=== PATIENT | female | born 1945 | race Asian ===

== ENCOUNTER 2016-10-05 14:54 | Inpatient (IN) | payer MEDICARE, BC ==
[~2016-10-05] VITALS: Ht 157.5 cm; Wt 80.9 kg
[2016-10-05 20:54] VITALS: Ht 157.5 cm; Wt 80.9 kg
[2016-10-05 21:00] VITALS: BP 101/56; RESP 18
[2016-10-05] MEDS: ATORVASTATIN 80 MG TAB PO SCH (22:16)
[2016-10-05] MEDS ORDERED: DOCUSATE SODIUM 100 MG CAP PO PRN (22:30)
[2016-10-06 00:01] LABS: ADD UMIC YES; UR ASCORBIC ACID NEGATIVE (NEGATIVE); UR BACTERIA FEW /HPF (NONE SEEN); UR BILIRUBIN (Dip) NEGATIVE (NEGATIVE); UR BLOOD (Dip) 2+ mg/dL (NEGATIVE); UR CLARITY CLEAR (CLEAR); UR COLOR STRAW (YELLOW); UR GLUCOSE (Dip) 1+ mg/dL (NEGATIVE); UR KETONES (Dip) NEGATIVE (NEGATIVE); UR LEUKOCYTE ESTERASE (Dip) 1+ Leu/ul (NEGATIVE); UR NITRITE (Dip) NEGATIVE (NEGATIVE); UR RBC 13 /HPF (0-5); UR SPECIFIC GRAVITY (Dip) 1.009 (1.003-1.030); UR TOTAL PROTEIN (Dip) NEGATIVE (NEGATIVE); UR UROBILINOGEN (Dip) NEGATIVE (NEGATIVE)
[2016-10-06 02:00] VITALS: BP 135/75; RESP 18
[2016-10-06 06:37] LABS: BASOPHIL # 0.1 10^3/ul (0.0-0.1); BASOPHILS % 0.7 % (0.0-2.0); EOSINOPHILS # 0.2 10^3/ul (0.0-0.5); EOSINOPHILS % 3.1 % (0.0-7.0); HEMATOCRIT 38.1 % (37.0-47.0); HEMOGLOBIN 12.2 g/dl (12.0-16.0); LYMPHOCYTES # 1.5 10^3/ul (0.8-2.9); LYMPHOCYTES % 21.7 % (15.0-51.0); MEAN CORPUSCULAR HEMOGLOBIN 28.6 pg (29.0-33.0); MEAN CORPUSCULAR VOLUME 89.2 fl (82.0-101.0); MEAN PLATELET VOLUME 9.7 fl (7.4-10.4); MONOCYTE # 0.5 10^3/ul (0.3-0.9); MONOCYTES % 6.4 % (0.0-11.0); NEUTROPHILS % 67.7 % (39.0-77.0); PLATELET COUNT 257 10^3/UL (140-415); RED BLOOD COUNT 4.27 10^6/ul (4.20-5.40); RED CELL DISTRIBUTION WIDTH 13.2 % (11.5-14.5)
[2016-10-06 06:58] LABS: ALBUMIN 3.9 g/dl (3.3-4.9); BILIRUBIN,INDIRECT 0.5 mg/dl (0-1.1); BILIRUBIN,TOTAL 0.5 mg/dl (0.2-1.3); CALCIUM 9.3 mg/dl (8.4-10.2); CREATININE 0.99 mg/dl (0.44-1.00); POTASSIUM 4.3 mmol/L (3.5-5.1); TOTAL PROTEIN 7.8 g/dl (6.1-8.1)
[2016-10-06 07:30] VITALS: BP 141/73; RESP 20
[2016-10-06] MEDS: ASPIRIN (EC) 81 MG TAB PO SCH (08:31)
[2016-10-06] MEDS: AMLODIPINE 5 MG TAB PO SCH (08:32)
[2016-10-06] MEDS: metFORMIN 850 MG TAB PO SCH ×2 (08:32→17:17)
--- NOTE | 2016-10-06 10:34 | HP ---
DATE OF ADMISSION: 10/05/2016 CHIEF COMPLAINT: Acute CVA. HISTORY OF PRESENT ILLNESS: This is a 70-year-old female with a past medical history of diabetes, hypertension, dyslipidemia, who presented to [facility] with 1 week of left lower motor weakness and abnormal facial sensation dysarthria. 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 The patient was subsequently admitted and was treated for acute CVA. She was started on aspirin and statin therapy. The patient was also noted to have and episode of acute kidney injury, which seem to improved with IV fluids. The patient received physical therapy during the hospital course and was subsequently transferred to [facility] for continued care. Upon my evaluation, patient a this time is stable. No fevers, chills, nausea, vomiting. No shortness of breath. PAST MEDICAL HISTORY: As stated above. History of hypertension, dyslipidemia, diabetes. PAST SURGICAL HISTORY: None. ALLERGIES: NO KNOWN DRUG ALLERGIES. SOCIAL HISTORY: Does not drink, smoke, or do drugs. MEDICATIONS: The patient's medications have been reviewed. REVIEW OF SYSTEMS: A 14-point review of systems was conducted and except what is noted in history of present illness, is negative. PHYSICAL EXAMINATION: VITAL SIGNS: Blood pressure 141/73, respirations 20, pulse 74, temperature 98.6. HEENT: Head is normocephalic. NECK: Supple. HEART: Regular rate. LUNGS: Diminished breath sounds at the base. ABDOMEN: Soft, nontender to palpation. No rebound or guarding. EXTREMITIES: Negative for clubbing, cyanosis or edema. DERMATOLOGIC: No rashes. MUSCULOSKELETAL: No joint effusion. NEUROLOGIC: The patient has left leg weakness. LABORATORY DATA: White count 10.9, hemoglobin 10.2, hematocrit 30.1, platelet count 257. Sodium 144, potassium 3, chloride 102, BUN 60, creatinine 0.99. ASSESSMENT AND PLAN: 1. 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 Plan is continue physical therapy, occupational therapy. Continue medical management with aspirin and statin therapy. Continue current blood pressure control. 2. Hypertension, continue Norvasc. 3. Dyslipidemia. Continue statin therapy. 4. Status post acute kidney injury. 5. Diabetes. Continue metformin. Continue Accu-Cheks and insulin sliding scale. 6. Left lower extremity weakness, etiology is possibly due to disc herniation. Will continue physical therapy. 7. Gastrointestinal and deep venous thrombosis prophylaxis. Patient placed on proton pump inhibitor and sequential leg squeezes. Dictated By: Sha Medina DO /gina/samara /Document#: [id number]
[2016-10-06 14:00] VITALS: BP 130/81; RESP 18
[2016-10-06] MEDS ORDERED: HYDROCORTISONE 25 MG SUPP PR PRN (14:30)
[2016-10-06] MEDS ORDERED: BISACODYL 10 MG SUPP PR PRN (15:00)
[2016-10-06] MEDS ORDERED: ACETAMINOPHEN 325 MG TAB PO PRN (15:00)
[2016-10-06] MEDS ORDERED: LACTULOSE 30ML CUP PO PRN (15:00)
[2016-10-06] MEDS ORDERED: MAGNESIUM HYDROXIDE 30ML CUP PO PRN (15:00)
--- NOTE | 2016-10-06 16:18 | CONS ---
DATE OF ADMISSION: 10/05/2016 DATE OF CONSULTATION: 10/06/2016 REHABILITATION POST ADMISSION PHYSICIAN EVALUATION: REHABILITATION IMPAIRMENT CATEGORY: Left DAPHNEY infarct CVA with right-sided weakness. ACTIVE COMORBIDITIES: 1. Lumbar disc herniation with radiculopathy. 2. Hypertension. 3. Diabetes mellitus. 4. Hyperlipidemia. 5. Impairments in self-care, mobility and cognition. HISTORY OF PRESENT ILLNESS: The patient is a very pleasant 70- year-old female who initially noted 2 weeks of left lower extremity weakness. An MRI at that time did reveal lumbar disc herniation. Patient was noted to have continued weakness in addition to dysarthria and left facial numbness and presented to the emergency room. Workup did reveal a left posterior body of the corpus callosum DAPHNEY territory infarct. The patient also noted to have 75 percent stenosis of the right ICA. The patient noted to have significant impairments in self-care, mobility, as compared to baseline and has been cleared to transfer to the rehabilitation unit for comprehensive interdisciplinary rehab care. FUNCTIONAL HISTORY: Prior to recent events, she was independent in self-care tasks and mobility. Currently, patient requires moderate assist for self-care and mobility tasks. I have reviewed the preadmission screen and patient's current functional status is consistent with the preadmission screen. SOCIAL HISTORY: Patient lives at home in a home with several stair steps and hopes to return there upon discharge. PAST MEDICAL HISTORY: 1. Hypertension. 2. Diabetes mellitus. 3. Hyperlipidemia. 4. Lumbar disc herniation with radiculopathy. CURRENT MEDICATION: 1. Aspirin 81 mg p.o. daily. 2. Atorvastatin 80 mg p.o. daily. 3. Insulin sliding scale. 4. Amlodipine 10 mg p.o. daily. 5. Losartan 100 mg p.o. daily. 6. Metformin. ALLERGIES: PATIENT WITH NO KNOWN DRUG ALLERGIES. PHYSICAL EXAMINATION: VITAL SIGNS: Patient is currently afebrile with stable vital signs. HEENT: Extraocular motions are intact. Oropharynx clear. NECK: Supple. LUNGS: Clear anteriorly. HEART: S1, S2. ABDOMEN: Soft, nontender. Positive bowel sounds. NEUROLOGIC: She is awake and alert. She will follow simple one- step commands. She has 2/3 object recall at 5 minutes. She demonstrates good strength in the left upper and lower extremities. She has antigravity strength in the right upper and lower. She does have impaired dynamic balance. PLAN: Patient has been admitted for comprehensive interdisciplinary acute rehab and is anticipated to tolerate 3 hours of daily therapy in divided doses for at least 5 out of days a week. The treatment plan will include: 1. Physical therapy to focus on bed mobility, transfers and household ambulation with the goal of having patient reach a standby assist level. 2. Occupational therapy to focus on hygiene, grooming, dressing, bathing and toileting activities with goal of having patient reach standby assist level. 3. Rehabilitation nursing for carry over of therapeutic interventions with the goal of continent to bowel and bladder and the goal of patient and family education with regards to the aforementioned issues. 4. Speech therapy for full cognitive assessment and retraining with the goal of having patient return to baseline cognition and meet nutritional needs by mouth. Estimated length of stay 10 days. DISPOSITION GOAL: Home with family Rehabilitation Barrier: Cognition Intervention for Barrier: Speech Therapy I performed a full physical examination on this patient within 24 hours of admission to the rehabilitation unit and believe the patient is a good candidate for comprehensive interdisciplinary rehab care and is anticipated to make reasonable goals in a reasonable period of time as outlined above. Dictated By: Rossy Andrade MD /gina/whit /Document#: [id number] CELY
[2016-10-06 19:37] VITALS: BP 111/74; RESP 18
[2016-10-06] MEDS: ATORVASTATIN 80 MG TAB PO SCH (20:32)
[2016-10-06] MEDS ORDERED: ATORVASTATIN 80 MG TAB PO SCH (21:00)
[2016-10-07 02:06] VITALS: BP 132/71; RESP 18
[2016-10-07] MEDS: FAMOTIDINE 20 MG TAB PO SCH (08:38)
[2016-10-07] MEDS: ASPIRIN (EC) 81 MG TAB PO SCH (08:42)
[2016-10-07] MEDS: metFORMIN 850 MG TAB PO SCH ×2 (08:43→17:46)
[2016-10-07] MEDS: AMLODIPINE 5 MG TAB PO SCH (08:43)
[2016-10-07] MEDS: LOSARTAN 25 MG TAB PO SCH (08:44)
--- NOTE | 2016-10-07 11:36 | PN ---
DATE: 10/07/2016 SUBJECTIVE DATA: The patient is stable. No events overnight. No fevers, chills, nausea, vomiting. OBJECTIVE DATA: VITAL SIGNS: Blood pressure is 132/71, respirations 18, pulse 93, temperature 98.3. HEENT: Head is normocephalic. NECK: Supple. HEART: Regular rate. LUNGS: Diminished breath sounds at the base. ABDOMEN: Soft, nontender to palpation. No rebound or guarding. EXTREMITIES: Negative for clubbing, cyanosis. No edema. DERMATOLOGIC: Clean. No rashes. MUSCULOSKELETAL: No joint effusion. NEUROLOGIC: No change. MEDICATIONS: Patient's medications have been reviewed. LABORATORY AND DIAGNOSTIC DATA: Reviewed. No new labs. ASSESSMENT AND PLAN: 1. Acute cerebral vascular accident, of the left posterior body of the corpus callosum, left MCA territory. The patient is currently stable. Continue physical therapy. Continue medical management. Aspirin, statin therapy. 2. Hypertension. Continue current blood pressure regimen. 3. Dyslipidemia. Continue statin therapy. 4. Diabetes. Continue metformin. Continue Accu-Cheks. 5. Left lower extremity weakness, possibly from disc herniation. Patient clinically improving. Continue physical therapy. 6. Gastrointestinal and deep venous thrombosis prophylaxis. Dictated By: Sha Medina DO /gina/joey /Document#: [id number]
--- NOTE | 2016-10-07 11:44 | CONS ---
Date/Time of Note Date/Time of Note DATE: 10/07/16 TIME: 11:43 Consult Date/Type/Reason Admit Date/Time Oct 05, 2016 at 19:34 Initial Consult Date Subjective Motivated Objective pulm-cta abd-soft min assist Vital Signs Date Time Temp Pulse Resp B/P Pulse Ox O2 Delivery O2 Flow Rate FiO2 10/07/16 02:06 98.0 18 132/71 93 10/06/16 19:37 92 Intake and Output 10/06/16 10/06/16 10/07/16 15:00 23:00 07:00 Intake Total 460 ml 300 ml Output Total 1 ml Balance 459 ml 300 ml Results/Medications Result Diagram: 10/06/16 0610 10/06/16 0610 Medications Current Medications Aspirin (Halfprin) 81 mg DAILY PO Last administered on 10/07/16 08:42; Admin Dose 81 MG; Start 10/06/16 at 09:00 Amlodipine Besylate (Norvasc) 5 mg DAILY PO Last administered on 10/07/16 08:43 ; Admin Dose 5 MG; Start 10/06/16 at 09:00 Atorvastatin Calcium (Lipitor) 80 mg HS PO Last administered on 10/06/16 20:32 ; Admin Dose 80 MG; Start 10/05/16 at 22:13 Docusate Sodium (Colace) 100 mg BID PRN PO CONSTIPATION Last administered on 22:29; Admin Dose 100 MG; Start 10/05/16 at 22:30 Famotidine (Pepcid) 20 mg DAILY PO Last administered on 10/07/16 08:38; Admin Dose 20 MG; Start 10/07/16 at 09:00 Hydrocortisone (Anusol-Hc Supp) 25 mg BID PRN [place] HEMORROID PAIN/ITCHING; Start 10/06/16 at 14:30 Losartan Potassium (Cozaar) 25 mg DAILY PO Last administered on 10/07/16 08:44 ; Admin Dose 25 MG; Start 10/07/16 at 09:00 Lactulose (Enulose) 20 gm DAILY PRN PO CONSTIPATION; Start 10/06/16 at 15:00 Magnesium Hydroxide (Milk Of Mag) 30 ml DAILY PRN PO CONSTIPATION; Start at 15:00 Bisacodyl (Dulcolax Supp) 10 mg DAILY PRN [place] CONSTIPATION; Start 10/06/16 at 15 :00 Acetaminophen (Tylenol Tab) 650 mg Q4H PRN PO PAIN AND OR ELEVATED TEMP; Start 10/06/16 at 15:00 Assessment/Plan Additional Assessment/Plan Rehab- Left DAPHNEY infarct CVA with right-sided weakness. Continue treatment plan Lumbar disc herniation with radiculopathy. Hypertension. Diabetes mellitus. Hyperlipidemia. SHAHRZAD RODRIGUEZ MD Oct 07, 2016 11:44
[2016-10-07] MEDS: ATORVASTATIN 80 MG TAB PO SCH (20:59)
[2016-10-08 02:09] VITALS: BP 139/70; RESP 18
[2016-10-08] MEDS: ACCU-CHEK XX SCH (07:00)
[2016-10-08 07:30] VITALS: BP 133/66; RESP 18
[2016-10-08] MEDS: FAMOTIDINE 20 MG TAB PO SCH (08:32)
[2016-10-08] MEDS: LOSARTAN 25 MG TAB PO SCH (08:33)
[2016-10-08] MEDS: ASPIRIN (EC) 81 MG TAB PO SCH (08:33)
[2016-10-08] MEDS: AMLODIPINE 5 MG TAB PO SCH (08:33)
[2016-10-08] MEDS: metFORMIN 850 MG TAB PO SCH ×2 (08:33→17:28)
--- NOTE | 2016-10-08 11:17 | CONS ---
Date/Time of Note Date/Time of Note DATE: 10/08/16 TIME: :17 Consult Date/Type/Reason Admit Date/Time Oct 05, 2016 at 19:34 Subjective Motivated Objective pulm-cta abd-soft min assist Vital Signs Date Time Temp Pulse Resp B/P Pulse Ox O2 Delivery O2 Flow Rate FiO2 10/08/16 07:30 98.5 76 18 133/66 96 Intake and Output 10/07/16 10/07/16 10/08/16 15:00 23:00 07:00 Intake Total 850 ml 650 ml 500 ml Output Total 1 ml Balance 850 ml 650 ml 499 ml Results/Medications Result Diagram: 10/06/16 0610 10/06/16 0610 Results 24 hrs Laboratory Tests Test 10/08/16 08:22 Bedside Glucose 144 Medications Current Medications Aspirin (Halfprin) 81 mg DAILY PO Last administered on 10/08/16 08:33; Admin Dose 81 MG; Start 10/06/16 at 09:00 Amlodipine Besylate (Norvasc) 5 mg DAILY PO Last administered on 10/08/16 08:33 ; Admin Dose 5 MG; Start 10/06/16 at 09:00 Atorvastatin Calcium (Lipitor) 80 mg HS PO Last administered on 10/07/16 20:59 ; Admin Dose 80 MG; Start 10/05/16 at 22:13 Docusate Sodium (Colace) 100 mg BID PRN PO CONSTIPATION Last administered on 22:29; Admin Dose 100 MG; Start 10/05/16 at 22:30 Famotidine (Pepcid) 20 mg DAILY PO Last administered on 10/08/16 08:32; Admin Dose 20 MG; Start 10/07/16 at 09:00 Hydrocortisone (Anusol-Hc Supp) 25 mg BID PRN [place] HEMORROID PAIN/ITCHING; Start 10/06/16 at 14:30 Losartan Potassium (Cozaar) 25 mg DAILY PO Last administered on 10/08/16 08:33 ; Admin Dose 25 MG; Start 10/07/16 at 09:00 Lactulose (Enulose) 20 gm DAILY PRN PO CONSTIPATION; Start 10/06/16 at 15:00 Magnesium Hydroxide (Milk Of Mag) 30 ml DAILY PRN PO CONSTIPATION; Start at 15:00 Bisacodyl (Dulcolax Supp) 10 mg DAILY PRN [place] CONSTIPATION; Start 10/06/16 at 15 :00 Acetaminophen (Tylenol Tab) 650 mg Q4H PRN PO PAIN AND OR ELEVATED TEMP; Start 10/06/16 at 15:00 Assessment/Plan Additional Assessment/Plan Rehab- Left DAPHNEY infarct CVA with right-sided weakness. Steady progress, continue treatment program Lumbar disc herniation with radiculopathy- continue back education Hypertension. Diabetes mellitus. Hyperlipidemia. SHAHRZAD RODRIGUEZ MD Oct 08, 2016 11:17
--- NOTE | 2016-10-08 12:54 | PN ---
Date/Time of Note Date/Time of Note DATE: 10/08/16 TIME: 12:53 Assessment/Plan VTE Prophylaxis VTE Prophylaxis Intervention: other Assessment/Plan Chief Complaint/Hosp Course SUBJECTIVE DATA: The patient is stable. No events overnight. No fevers, chills, nausea, vomiting. OBJECTIVE DATA: HEENT: Head is normocephalic. NECK: Supple. HEART: Regular rate. LUNGS: Diminished breath sounds at the base. ABDOMEN: Soft, nontender to palpation. No rebound or guarding. EXTREMITIES: Negative for clubbing, cyanosis. No edema. DERMATOLOGIC: Clean. No rashes. MUSCULOSKELETAL: No joint effusion. NEUROLOGIC: No change. MEDICATIONS: Patient's medications have been reviewed. LABORATORY AND DIAGNOSTIC DATA: Reviewed. ASSESSMENT AND PLAN: 1. Acute cerebral vascular accident, of the left posterior body of the corpus callosum, left MCA territory. The patient is currently stable. Continue physical therapy. Continue medical management. Aspirin, statin therapy. 2. Hypertension. Continue current blood pressure regimen. 3. Dyslipidemia. Continue statin therapy. 4. Diabetes. Continue metformin. Continue Accu-Cheks. 5. Left lower extremity weakness, possibly from disc herniation. Patient clinically improving. Continue physical therapy. 6. Gastrointestinal and deep venous thrombosis prophylaxis. Problems: Exam/Review of Systems Vital Signs Vitals Vital Signs Date Time Temp Pulse Resp B/P Pulse Ox O2 Delivery O2 Flow Rate FiO2 10/08/16 07:30 98.5 76 18 133/66 96 Intake and Output 10/07/16 10/07/16 10/08/16 15:00 23:00 07:00 Intake Total 850 ml 650 ml 500 ml Output Total 1 ml Balance 850 ml 650 ml 499 ml Results Result Diagram: 10/06/16 0610 10/06/16 0610 Results 24 hrs Laboratory Tests Test 10/08/16 08:22 Bedside Glucose 144 Medications Medications Current Medications Aspirin (Halfprin) 81 mg DAILY PO Last administered on 10/08/16 08:33; Admin Dose 81 MG; Start 10/06/16 at 09:00 Amlodipine Besylate (Norvasc) 5 mg DAILY PO Last administered on 10/08/16 08:33 ; Admin Dose 5 MG; Start 10/06/16 at 09:00 Atorvastatin Calcium (Lipitor) 80 mg HS PO Last administered on 10/07/16 20:59 ; Admin Dose 80 MG; Start 10/05/16 at 22:13 Docusate Sodium (Colace) 100 mg BID PRN PO CONSTIPATION Last administered on 22:29; Admin Dose 100 MG; Start 10/05/16 at 22:30 Famotidine (Pepcid) 20 mg DAILY PO Last administered on 10/08/16 08:32; Admin Dose 20 MG; Start 10/07/16 at 09:00 Hydrocortisone (Anusol-Hc Supp) 25 mg BID PRN [place] HEMORROID PAIN/ITCHING; Start 10/06/16 at 14:30 Losartan Potassium (Cozaar) 25 mg DAILY PO Last administered on 10/08/16 08:33 ; Admin Dose 25 MG; Start 10/07/16 at 09:00 Lactulose (Enulose) 20 gm DAILY PRN PO CONSTIPATION; Start 10/06/16 at 15:00 Magnesium Hydroxide (Milk Of Mag) 30 ml DAILY PRN PO CONSTIPATION; Start at 15:00 Bisacodyl (Dulcolax Supp) 10 mg DAILY PRN [place] CONSTIPATION; Start 10/06/16 at 15 :00 Acetaminophen (Tylenol Tab) 650 mg Q4H PRN PO PAIN AND OR ELEVATED TEMP; Start 10/06/16 at 15:00 MADELINE ARREGUIN DO Oct 08, 2016 12:54
[2016-10-08 14:00] VITALS: BP 134/63; RESP 20
[2016-10-08] MEDS: ATORVASTATIN 80 MG TAB PO SCH (20:14)
[2016-10-08 20:24] VITALS: BP 142/86; RESP 18
[2016-10-09 02:00] VITALS: BP 138/77; RESP 18
[2016-10-09 07:30] VITALS: BP 125/66; RESP 20
[2016-10-09] MEDS: metFORMIN 850 MG TAB PO SCH ×2 (08:24→17:28)
[2016-10-09] MEDS: FAMOTIDINE 20 MG TAB PO SCH (08:24)
[2016-10-09] MEDS: ASPIRIN (EC) 81 MG TAB PO SCH (08:24)
[2016-10-09] MEDS: LOSARTAN 25 MG TAB PO SCH (08:24)
[2016-10-09] MEDS: AMLODIPINE 5 MG TAB PO SCH (08:24)
--- NOTE | 2016-10-09 10:36 | PN ---
Date/Time of Note Date/Time of Note DATE: 10/09/16 TIME: 10:36 Assessment/Plan VTE Prophylaxis VTE Prophylaxis Intervention: other Assessment/Plan Chief Complaint/Hosp Course SUBJECTIVE DATA: The patient is stable. No events overnight. No fevers, chills, nausea, vomiting. OBJECTIVE DATA: HEENT: Head is normocephalic. NECK: Supple. HEART: Regular rate. LUNGS: Diminished breath sounds at the base. ABDOMEN: Soft, nontender to palpation. No rebound or guarding. EXTREMITIES: Negative for clubbing, cyanosis. No edema. DERMATOLOGIC: Clean. No rashes. MUSCULOSKELETAL: No joint effusion. NEUROLOGIC: No change. MEDICATIONS: Patient's medications have been reviewed. LABORATORY AND DIAGNOSTIC DATA: Reviewed. ASSESSMENT AND PLAN: 1. Acute cerebral vascular accident, of the left posterior body of the corpus callosum, left MCA territory. The patient is currently stable. Continue physical therapy. Continue medical management. Aspirin, statin therapy. 2. Hypertension. Continue current blood pressure regimen. 3. Dyslipidemia. Continue statin therapy. 4. Diabetes. Continue metformin. Continue Accu-Cheks. 5. Left lower extremity weakness, possibly from disc herniation. Patient clinically improving. Continue physical therapy. 6. Gastrointestinal and deep venous thrombosis prophylaxis. Problems: Exam/Review of Systems Vital Signs Vitals Vital Signs Date Time Temp Pulse Resp B/P Pulse Ox O2 Delivery O2 Flow Rate FiO2 10/09/16 07:30 98.2 77 20 125/66 95 Intake and Output 10/08/16 10/08/16 10/09/16 15:00 23:00 07:00 Intake Total 680 ml 750 ml Balance 680 ml 750 ml Results Result Diagram: 10/06/16 0610 10/06/16 0610 Results 24 hrs Laboratory Tests Test 10/09/16 07:57 Bedside Glucose 126 Medications Medications Current Medications Aspirin (Halfprin) 81 mg DAILY PO Last administered on 10/09/16 08:24; Admin Dose 81 MG; Start 10/06/16 at 09:00 Amlodipine Besylate (Norvasc) 5 mg DAILY PO Last administered on 10/09/16 08:24 ; Admin Dose 5 MG; Start 10/06/16 at 09:00 Atorvastatin Calcium (Lipitor) 80 mg HS PO Last administered on 10/08/16 20:14 ; Admin Dose 80 MG; Start 10/05/16 at 22:13 Docusate Sodium (Colace) 100 mg BID PRN PO CONSTIPATION Last administered on 22:29; Admin Dose 100 MG; Start 10/05/16 at 22:30 Famotidine (Pepcid) 20 mg DAILY PO Last administered on 10/09/16 08:24; Admin Dose 20 MG; Start 10/07/16 at 09:00 Hydrocortisone (Anusol-Hc Supp) 25 mg BID PRN [place] HEMORROID PAIN/ITCHING; Start 10/06/16 at 14:30 Losartan Potassium (Cozaar) 25 mg DAILY PO Last administered on 10/09/16 08:24 ; Admin Dose 25 MG; Start 10/07/16 at 09:00 Lactulose (Enulose) 20 gm DAILY PRN PO CONSTIPATION; Start 10/06/16 at 15:00 Magnesium Hydroxide (Milk Of Mag) 30 ml DAILY PRN PO CONSTIPATION; Start at 15:00 Bisacodyl (Dulcolax Supp) 10 mg DAILY PRN [place] CONSTIPATION; Start 10/06/16 at 15 :00 Acetaminophen (Tylenol Tab) 650 mg Q4H PRN PO PAIN AND OR ELEVATED TEMP; Start 10/06/16 at 15:00 MADELINE ARREGUIN DO Oct 09, 2016 10:36
[2016-10-09 19:31] VITALS: BP 143/67; RESP 18
[2016-10-09] MEDS: ATORVASTATIN 80 MG TAB PO SCH (20:59)
[2016-10-09 21:51] VITALS: BP 116/62; RESP 18
[2016-10-10 02:03] VITALS: BP 134/69; RESP 20
[2016-10-10] MEDS: ACCU-CHEK XX SCH (07:00)
[2016-10-10 07:30] VITALS: BP 130/78; RESP 20
--- NOTE | 2016-10-10 08:55 | CONS ---
Date/Time of Note Date/Time of Note DATE: 10/10/16 TIME: 08:54 Consult Date/Type/Reason Admit Date/Time Oct 05, 2016 at 19:34 Objective Vital Signs Date Time Temp Pulse Resp B/P Pulse Ox O2 Delivery O2 Flow Rate FiO2 10/10/16 07:30 98.5 81 20 130/78 95 Intake and Output 10/09/16 10/09/16 10/10/16 15:00 23:00 07:00 Intake Total 1100 ml 380 ml Balance 1100 ml 380 ml INTERDISCIPLINARY TEAM CONFERENCE BOWEL- Cont BLADDER-Cont SKIN- intact OT- DRESSING-min BATHING-min TOILETING-min PT- BED MOBILITY-sba TRANSFERS-cga AMBULATION-sba 150 feet W.C. MOBILITY-sba SPEECH- COGNITION-sba A/P- Interdisciplinary team conference held today. Please see interdisciplinary sheet. Working toward d.c. on 10/12 with post discharge follow up of physical therapy, occupational therapy. Results/Medications Result Diagram: 10/06/16 0610 10/06/16 0610 Results 24 hrs Laboratory Tests Test 10/10/16 08:00 Bedside Glucose 123 Medications Current Medications Aspirin (Halfprin) 81 mg DAILY PO Last administered on 10/09/16 08:24; Admin Dose 81 MG; Start 10/06/16 at 09:00 Amlodipine Besylate (Norvasc) 5 mg DAILY PO Last administered on 10/09/16 08:24 ; Admin Dose 5 MG; Start 10/06/16 at 09:00 Atorvastatin Calcium (Lipitor) 80 mg HS PO Last administered on 10/09/16 20:59 ; Admin Dose 80 MG; Start 10/05/16 at 22:13 Docusate Sodium (Colace) 100 mg BID PRN PO CONSTIPATION Last administered on 22:29; Admin Dose 100 MG; Start 10/05/16 at 22:30 Famotidine (Pepcid) 20 mg DAILY PO Last administered on 10/09/16 08:24; Admin Dose 20 MG; Start 10/07/16 at 09:00 Hydrocortisone (Anusol-Hc Supp) 25 mg BID PRN [place] HEMORROID PAIN/ITCHING; Start 10/06/16 at 14:30 Losartan Potassium (Cozaar) 25 mg DAILY PO Last administered on 9/3/17at 08:24 ; Admin Dose 25 MG; Start 10/07/16 at 09:00 Lactulose (Enulose) 20 gm DAILY PRN PO CONSTIPATION; Start 10/06/16 at 15:00 Magnesium Hydroxide (Milk Of Mag) 30 ml DAILY PRN PO CONSTIPATION; Start at 15:00 Bisacodyl (Dulcolax Supp) 10 mg DAILY PRN [place] CONSTIPATION; Start 10/06/16 at 15 :00 Acetaminophen (Tylenol Tab) 650 mg Q4H PRN PO PAIN AND OR ELEVATED TEMP; Start 10/06/16 at 15:00 SHAHRZAD RODRIGUEZ MD Oct 10, 2016 08:55
[2016-10-10] MEDS: metFORMIN 850 MG TAB PO SCH ×2 (09:10→18:04)
[2016-10-10] MEDS: FAMOTIDINE 20 MG TAB PO SCH (09:10)
[2016-10-10] MEDS: ASPIRIN (EC) 81 MG TAB PO SCH (09:10)
[2016-10-10] MEDS: AMLODIPINE 5 MG TAB PO SCH (09:14)
[2016-10-10] MEDS: LOSARTAN 25 MG TAB PO SCH (09:14)
--- NOTE | 2016-10-10 09:40 | PN ---
DATE: 10/10/2016 SUBJECTIVE DATA: The patient is stable. No events overnight. No fevers, chills, nausea, vomiting. No shortness of breath. OBJECTIVE DATA: VITAL SIGNS: Blood pressure 130/78, respirations 20, pulse 81, temperature 98.5. HEENT: Head is normocephalic. NECK: Supple. HEART: Regular rate. LUNGS: Diminished breath sounds at the base. ABDOMEN: Soft, nontender to palpation. No rebound or guarding. EXTREMITIES: Negative for clubbing, cyanosis. No edema. DERMATOLOGIC: Clean. No rashes. MUSCULOSKELETAL: No joint effusion. NEUROLOGIC: No change in exam. MEDICATIONS: The patient's medications have been reviewed. LABORATORY AND DIAGNOSTIC DATA: Laboratory data has been reviewed. No new labs. ASSESSMENT AND PLAN: 1. Acute cerebrovascular accident of the left posterior body of the corpus callosum, left MCA territory. The patient is currently stable. Continue medical management. Continue aspirin and statin therapy. 2. Hypertension. Continue current blood pressure regimen. 3. Dyslipidemia. Continue statin therapy. 4. Diabetes. Continue Accu-Cheks and sliding scale. 5. Lower extremity weakness secondary to disk herniation, clinically improving. Continue physical therapy. 6. Gastrointestinal and deep venous thrombosis prophylaxis. Dictated By: Sha Medina DO /gina/heri /Document#: [id number]
[2016-10-10 14:00] VITALS: BP 119/66; RESP 20
[2016-10-10 19:15] VITALS: BP 154/79; RESP 18
[2016-10-10] MEDS: ATORVASTATIN 80 MG TAB PO SCH (20:16)
[2016-10-11] MEDS: ACCU-CHEK XX SCH (07:00)
[2016-10-11] MEDS: FAMOTIDINE 20 MG TAB PO SCH (08:22)
[2016-10-11] MEDS: metFORMIN 850 MG TAB PO SCH ×2 (08:22→17:35)
[2016-10-11] MEDS: LOSARTAN 25 MG TAB PO SCH (08:28)
[2016-10-11] MEDS: AMLODIPINE 5 MG TAB PO SCH (08:29)
[2016-10-11] MEDS: ASPIRIN (EC) 81 MG TAB PO SCH (09:00)
--- NOTE | 2016-10-11 11:20 | PN ---
DATE: 10/11/2016 SUBJECTIVE DATA: The patient is stable. No events overnight. No fevers, chills, nausea, vomiting. OBJECTIVE DATA: VITAL SIGNS: Blood pressure is 154/79, respiration 18, pulse 87, temperature 98.2. HEENT: Head is normocephalic. NECK: Supple. HEART: Regular rate. LUNGS: Diminished breath sounds at the base. ABDOMEN: Soft, nontender to palpation. No rebound or guarding. EXTREMITIES: Negative for clubbing, cyanosis. No edema. DERMATOLOGIC: Clean. No rashes. MUSCULOSKELETAL: No joint effusion. NEUROLOGIC: No change in exam. MEDICATIONS: Reviewed. LABORATORY AND DIAGNOSTIC DATA: Reviewed. ASSESSMENT AND PLAN: 1. Acute cerebrovascular accident over the left middle cerebral artery territory, stable. Continue medical management. Continue aspirin and statin therapy. 2. Hypertension. Blood pressure elevated this morning. Continue current blood pressure regimen, adjust as needed. 3. Dyslipidemia. Continue statin therapy. 4. Diabetes. Continue Accu-Cheks and sliding scale. 5. Lower extremity weakness, improving. Secondary to disk herniation. Continue physical therapy. 6. Gastrointestinal and deep venous thrombosis prophylaxis. Dictated By: Sha Medina DO /gina/loan /Document#: [id number]
--- NOTE | 2016-10-11 12:30 | CONS ---
Date/Time of Note Date/Time of Note DATE: 10/11/16 TIME: 12:29 Consult Date/Type/Reason Admit Date/Time Oct 05, 2016 at 19:34 Subjective Pleased with her progress Objective pulm-cta abd-soft sba ambulation Vital Signs Date Time Temp Pulse Resp B/P Pulse Ox O2 Delivery O2 Flow Rate FiO2 10/10/16 19:15 98.2 87 18 154/79 98 Intake and Output 10/10/16 10/10/16 10/11/16 15:00 23:00 07:00 Intake Total 760 ml 180 ml Output Total 1 ml Balance 759 ml 180 ml Results/Medications Results 24 hrs Laboratory Tests Test 10/11/16 08:17 Bedside Glucose 158 Medications Current Medications Aspirin (Halfprin) 81 mg DAILY PO Last administered on 10/10/16 09:10; Admin Dose 81 MG; Start 10/06/16 at 09:00 Amlodipine Besylate (Norvasc) 5 mg DAILY PO Last administered on 10/11/16 08:29 ; Admin Dose 5 MG; Start 10/06/16 at 09:00 Atorvastatin Calcium (Lipitor) 80 mg HS PO Last administered on 10/10/16 20:16 ; Admin Dose 80 MG; Start 10/05/16 at 22:13 Docusate Sodium (Colace) 100 mg BID PRN PO CONSTIPATION Last administered on 22:29; Admin Dose 100 MG; Start 10/05/16 at 22:30 Famotidine (Pepcid) 20 mg DAILY PO Last administered on 10/11/16 08:22; Admin Dose 20 MG; Start 10/07/16 at 09:00 Hydrocortisone (Anusol-Hc Supp) 25 mg BID PRN NV HEMORROID PAIN/ITCHING; Start 10/06/16 at 14:30 Losartan Potassium (Cozaar) 25 mg DAILY PO Last administered on 10/11/16 08:28 ; Admin Dose 25 MG; Start 10/07/16 at 09:00 Lactulose (Enulose) 20 gm DAILY PRN PO CONSTIPATION; Start 10/06/16 at 15:00 Magnesium Hydroxide (Milk Of Mag) 30 ml DAILY PRN PO CONSTIPATION; Start at 15:00 Bisacodyl (Dulcolax Supp) 10 mg DAILY PRN [place] CONSTIPATION; Start 10/06/16 at 15 :00 Acetaminophen (Tylenol Tab) 650 mg Q4H PRN PO PAIN AND OR ELEVATED TEMP; Start 10/06/16 at 15:00 Assessment/Plan Additional Assessment/Plan Rehab- 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 Continue treatment program, anticipate home tomorrow Lumbar disc herniation with radiculopathy- continue back education Hypertension. Diabetes mellitus. Hyperlipidemia. SHAHRZAD RODRIGUEZ MD Oct 11, 2016 12:30
[2016-10-11 20:00] VITALS: BP 144/75; RESP 18
[2016-10-11] MEDS: ATORVASTATIN 80 MG TAB PO SCH (20:24)
[2016-10-12 02:00] VITALS: BP 124/65; RESP 18
[2016-10-12] MEDS: ACCU-CHEK XX SCH (07:45)
[2016-10-12 08:00] VITALS: BP 133/72; RESP 18
[2016-10-12] MEDS: FAMOTIDINE 20 MG TAB PO SCH (08:19)
[2016-10-12] MEDS: metFORMIN 850 MG TAB PO SCH (08:19)
[2016-10-12] MEDS: ASPIRIN (EC) 81 MG TAB PO SCH (08:20)
[2016-10-12] MEDS: LOSARTAN 25 MG TAB PO SCH (08:20)
[2016-10-12] MEDS: AMLODIPINE 5 MG TAB PO SCH (08:20)
--- NOTE | 2016-10-12 10:56 | DS ---
Date/Time of Note Date/Time of Note DATE: 10/12/16 TIME: 10:55 Discharge Summary Admission/Discharge Info Admit Date/Time Oct 05, 2016 at 19:34 Discharge Date/Time Discharge Diagnosis 1. 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 2.Lumbar disc herniation with radiculopathy. 3. Hypertension. 4. Diabetes mellitus. 5. Hyperlipidemia. 6. Improvements in self-care, mobility and cognition. Patient Condition: Good Hospital Course Patient was admitted for comprehensive interdisciplinary acute rehabilitation. Patient made steady functional gains and improved from a min/mod level to a Supervised level for self care and mobility, including ambulating 150 feet with the use of a front wheeled walker. Patient is being discharged home with recommendations for home health PT and OT follow up. DME recommendations: WC, FWW; BSC; Shower Chair Patient will follow up with PMD upon DC. Primary Care Provider Not On Staff Doctor Pending Labs Laboratory Tests Test 10/12/16 07:59 Bedside Glucose 130mg/dL (70-220) SHAHRZAD RODRIGUEZ MD Oct 12, 2016 10:56
--- NOTE | 2016-10-12 11:05 | PN ---
DATE: 10/12/2016 SUBJECTIVE DATA: The patient is stable. No events overnight. No fevers, chills, nausea, vomiting. OBJECTIVE DATA: VITAL SIGNS: Blood pressure is 133/72, respirations 18, pulse 73, temperature 97.3. HEENT: Head is normocephalic. NECK: Supple. HEART: Regular rate. LUNGS: Diminished breath sounds at the base. ABDOMEN: Soft, nontender to palpation. No rebound or guarding. EXTREMITIES: Negative for clubbing, cyanosis. No edema. DERMATOLOGIC: No rashes. MUSCULOSKELETAL: No joint effusion. NEUROLOGIC: No change in exam. MEDICATIONS: Reviewed. LABORATORY AND DIAGNOSTIC DATA: Reviewed. ASSESSMENT AND PLAN: 1. Acute cerebrovascular accident of the left middle cerebral artery territory. The patient is currently stable. Continue aspirin and statin therapy. 2. Hypertension. Blood pressure is controlled. Continue current blood pressure regimen. 3. Dyslipidemia. Continue statin therapy. 4. Diabetes. Continue Accu-Cheks and insulin sliding scale. 5. Lower extremity weakness, improving. Continue physical therapy. 6. Gastrointestinal and deep venous thrombosis prophylaxis. Dictated By: Sha Medina DO /gina/teressa /Document#: [id number]
== END 2016-10-12 14:30 | disposition home health service (06) | DRG 57 ==
LOC: VRC 18:16 → UNDOADMIN 18:16 → VRC 19:34
PROVIDERS: ADMIT Physical Medicine & Rehabilitation; ATTEND Internal Medicine
DX: I69.351 Hemiplegia and hemiparesis following cerebral infarction affecting right dominant side (principal); E11.9 Type 2 diabetes mellitus without complications; I10 Essential (primary) hypertension; E78.5 Hyperlipidemia, unspecified; M51.16 Intervertebral disc disorders with radiculopathy, lumbar region; Z74.09 Other reduced mobility; Z79.84 Long term (current) use of oral hypoglycemic drugs; Z79.82 Long term (current) use of aspirin; Z79.4 Long term (current) use of insulin
CPT/HCPCS: 80053; 81001; 82962; 85025; 87081; 87086; 92507; 92523; 92526; 92610; 97110; 97112; 97116; 97150; 97163; 97167; 97530; 97535